=== PATIENT | female | born 1985 | race Caucasian/White ===

== ENCOUNTER 2016-11-23 10:27 | Emergency (ER) | payer BC, MEDICAID ==
--- NOTE | 2016-11-23 10:38 | ER Document Report ---
ED Medical Screen (RME) - General Stated Complaint: BODY PAIN Notes: 31 yo female c/o flu like symptoms since this morning. + myalgia, + fever, + vomiting x 2 today. - Related Data Allergies/Adverse Reactions: No Known Allergies Allergy (Verified 11/23/16 10:37) Physical Exam - Vital signs Vitals: Temp Pulse Resp BP Pulse Ox 98.1 F 78 18 119/73 98 11/23/16 10:35 11/23/16 10:35 11/23/16 10:35 11/23/16 10:35 11/23/16 10:35 Course - Vital Signs Vital signs: Temp Pulse Resp BP Pulse Ox 98.1 F 78 18 119/73 98 11/23/16 10:35 11/23/16 10:35 11/23/16 10:35 11/23/16 10:35 11/23/16 10:35
--- NOTE | 2016-11-23 11:45 | ER Document Report ---
ED Flu Like - General Chief Complaint: Flu Symptoms Stated Complaint: BODY PAIN Mode of Arrival: Ambulatory Information source: Patient Notes: 31-year-old female presents to the emergency department complaining of onset of generalized body aches, fever, headache, congestion, nausea, and 2 episodes of vomiting this morning. Denies abdominal pain, neck or back pain, vision changes , difficulty breathing or swallowing. TRAVEL OUTSIDE OF THE [place] IN LAST 30 DAYS: No - HPI Onset: This morning Timing/Duration: Persistent Quality of pain: Achy Severity: Mild Pain Level: 2 Associated symptoms: Body/muscle aches, Chills, Nonproductive cough, Fever, Nausea, Vomiting, Rhinnorhea Similar symptoms previously: Yes Recently seen / treated by doctor: No - Related Data Allergies/Adverse Reactions: No Known Allergies Allergy (Verified 11/23/16 10:37) Past Medical History - General Information source: Patient - Social History Smoking Status: Never Smoker Chew tobacco use (# tins/day): No Frequency of alcohol use: None Drug Abuse: None Lives with: Family Family History: Reviewed & Not Pertinent Patient has suicidal ideation: No Patient has homicidal ideation: No Renal/ Medical History: Denies: Hx Peritoneal Dialysis Psychiatric Medical History: Reports: Hx Anxiety, Hx Depression Surgical Hx: Negative - Immunizations Hx Diphtheria, Pertussis, Tetanus Vaccination: Yes Review of Systems - Review of Systems Constitutional: See HPI EENT: See HPI Cardiovascular: No symptoms reported Respiratory: See HPI Gastrointestinal: See HPI Genitourinary: No symptoms reported Female Genitourinary: No symptoms reported Musculoskeletal: No symptoms reported Skin: No symptoms reported Hematologic/Lymphatic: No symptoms reported Neurological/Psychological: No symptoms reported -: Yes All other systems reviewed and negative Physical Exam - Vital signs Vitals: Temp Pulse Resp BP Pulse Ox 98.1 F 78 18 119/73 98 11/23/16 10:35 11/23/16 10:35 11/23/16 10:35 11/23/16 10:35 11/23/16 10:35 Interpretation: Normal - General General appearance: Appears well, Alert In distress: None - HEENT Head: Normocephalic, Atraumatic Eyes: Normal Conjunctiva: Normal Extraocular movements intact: Yes Eyelashes: Normal Pupils: PERRL Ears: Normal External canal: Normal Tympanic membrane: Normal Sinus: Normal Nasal: Normal Mouth/Lips: Normal Mucous membranes: Normal, Moist Pharynx: Normal. No: Blood in hypopharynx, Erythema, Exudate, Peritonsillar abscess, Post nasal drainage, Retropharyngeal abscess, Tonsillar hypertrophy, Uvular edema, Potential airway comprom., Other Neck: Normal. No: Anterior cervical chain, Posterior cervical chain, Lymphadenopathy, Meningismus, Subcutaneous emphysema - Respiratory Respiratory status: No respiratory distress Chest status: Nontender Breath sounds: Normal - CTAB Chest palpation: Normal - Cardiovascular Rhythm: Regular Heart sounds: Normal auscultation Murmur: No Pulses: Normal: Radial Normal capillary refill: Yes - Abdominal Inspection: Normal Distension: No distension Bowel sounds: Normal Tenderness: Nontender. No: Tender, McBurney's point, Horton's sign, Guarding, Rebound, Other Organomegaly: No organomegaly - Back Back: Normal, Nontender - Extremities General upper extremity: Normal inspection, Nontender, Normal color, Normal ROM , Normal strength, Normal temperature. No: Tender, Edema General lower extremity: Normal inspection, Nontender, Normal color, Normal ROM , Normal strength, Normal temperature, Normal weight bearing. No: Tender, Edema - Neurological Neuro grossly intact: Yes Cognition: Normal Orientation: AAOx4 María Coma Scale Eye Opening: Spontaneous [place] Coma Scale Verbal: Oriented [place] Coma Scale Motor: Obeys Commands María Coma Scale Total: 15 Speech: Normal Motor strength normal: LUE, RUE, LLE, RLE Sensory: Normal - Psychological Associated symptoms: Normal affect, Normal mood - Skin Skin Temperature: Warm Skin Moisture: Dry Skin Color: Normal Skin Turgor: Elastic Course - Re-evaluation Re-evalutation: 11/23/16 12:21 Patient hemodynamically stable, in no distress, afebrile, and appears well- hydrated. Tolerating oral fluids without difficulty or vomiting in the ED. Influenza A/B negative. No suggestion or emergent etiology at this time. Patient appears stable for discharge and agrees with home care, follow-up with PCP, and ED return precautions. - Vital Signs Vital signs: Temp Pulse Resp BP Pulse Ox 98.1 F 78 18 119/73 98 11/23/16 10:35 11/23/16 10:35 11/23/16 11:15 11/23/16 10:35 11/23/16 10:35 Discharge - Discharge Clinical Impression: Nonspecific syndrome suggestive of viral illness Condition: Stable Disposition: HOME, SELF-CARE Additional Instructions: Viral Syndrome The physician has diagnosed a likely viral infection. Viruses not only cause "colds," but can cause many different symptoms including generalized aching, fever, headache, cough, diarrhea, nausea, vomiting, and fatigue. The treatment, for the most part, is simply relief of symptoms. This means that antibiotics are usually not given. Rest, fluids, pain medications and, occasionally, medication for the specific symptoms that are most bothersome will be prescribed. Use good handwashing to avoid passing the virus to others. Shared toys should be cleaned with disinfectant. Clean the toilets, sinks, and counter surfaces in bathrooms. Launder clothing in hot water. Contact the physician if you develop any new or unusual symptoms such as severe headache, stiff neck, high fever, chest pain, productive cough, or shortness of breath. You should be rechecked if you don't see marked improvement within seven to 10 days. USE OF ACETAMINOPHEN (Tylenol): Acetaminophen may be taken for pain relief or fever control. It's much safer than aspirin, offering a wider range of "safe" dosages. It is safe during . Some brand names are Tylenol, Panadol, Datril, Anacin 3, Tempra, and Liquiprin. Acetaminophen can be repeated every four hours. The following are maximum recommended dosages: >89 pounds or adults 650 mg to 900 mg Acetaminophen can be repeated every four hours. Maximum dose not to exceed 4000 mg a day. Reglan (Metoclopramide) Reglan has been prescribed. This medicine affects the stomach and intestines. It can be used to treat nausea and vomiting, to prevent reflux of stomach acid up into the esophagus, or to increase the contractions of the stomach and intestines. It is often prescribed for esophagitis, and for paralysis of the stomach in diabetics. Reglan can cause either mild restlessness or drowsiness. You should contact the doctor at once if you become extremely restless, anxious, or cannot sleep, or if you develop uncontrollable motions of the lips, tongue, or jaw. Do not take alcohol with this medicine. Do not drive or operate machinery until you have been taking this medicine long enough to know how it affects you. Call the doctor if you develop abdominal pains, lightheadedness, black stool, or blood in the stool or vomitus. Diphenhydramine The use of diphenhydramine (Benadryl) has been recommended to control allergic symptoms. The 25 mg strength is available over- the-counter, as well as the elixir. This antihistamine is used for many symptoms. It's useful for itching, watering eyes and nose, allergic swelling, hives, and insect stings. The medication can be repeated four times daily. Age Elixir (12.5 mg/tsp) 25 mg pill 1 yr 1/4 tsp 2-3 yr 1/2 tsp 4-8 yr 1 tsp 9-14 yr 2 tsp one tab adult 1-2 tabs Antihistamines may cause drowsiness, especially with the first dose. Do not operate machinery or drive while under the effects of the medication. Do not combine the medication with alcohol, or with any other medication without talking to your doctor. FOLLOW-UP CARE: Drink plenty of fluids, at least 2 liters of water per day. Follow up with your primary care provider this week. Return to the Emergency Department for any worsening symptoms or concerns. Prescriptions: Diphenhydramine HCl [Benadryl] 25 mg PO Q6H PRN #10 capsule PRN Reason: Metoclopramide HCl [Reglan] 5 mg PO Q8H PRN #10 tablet PRN Reason: Forms: Return to Work
[2016-11-23 13:14] VITALS: BP 127/68
== END 2016-11-23 12:55 | disposition home or self-care (01) ==
LOC: ER 10:27
DX: B34.9 Viral infection, unspecified (principal); R52 Pain, unspecified; R50.9 Fever, unspecified; R51 Headache; R09.81 Nasal congestion; R11.2 Nausea with vomiting, unspecified
CPT/HCPCS: 87804; 99283